=== PATIENT | female | born 1990 | race Caucasian/White ===

== ENCOUNTER 2018-11-13 08:38 | Inpatient (IN) | payer MEDICAID ==
[2018-11-13 09:57] VITALS: BMI 34.8
[2018-11-13] MEDS: Lactated Ringer's 1,000 ML IV ONE ×4 (10:07→17:16)
[2018-11-13] MEDS ORDERED: Oxytocin 30 UNIT in NS 500 ml 30 UNITS/500 ML BAG IV ONE (10:11)
[2018-11-13 10:35] LABS: BASO % 0.2 % (0.0-2.0); EOS # 0.1 K/uL (0.0-0.7); EOS % 0.6 % (0.0-4.0); HEMOGLOBIN 14.2 g/dL (12.0-16.0); LYMPH # 2.1 K/uL (1.0-4.3); LYMPH % 19.4 % (20.0-40.0); MEAN CELL VOLUME 87.6 fl (81.0-99.0); MEAN CORPUSCULAR HEMOGLOBIN 29.4 pg (27.0-31.0); MEAN CORPUSCULAR HGB CONC 33.6 g/dL (33.0-37.0); MEAN PLATELET VOLUME 9.2 fl (7.2-11.7); MONO # 0.6 K/uL (0.0-0.8); MONO % 5.3 % (0.0-10.0); NEUT # 8.1 K/uL (1.8-7.0); NEUT % 74.5 % (50.0-75.0); NRBC % 0.1 % (0.0-0.0); RBC 4.82 Mil/uL (3.80-5.20); WHITE BLOOD COUNT 10.9 K/uL (4.8-10.8)
[2018-11-13] MEDS ORDERED: OXYTOCIN/0.9 % NS 20 UNIT/1,000 ML BAG IV SCH (11:30)
[2018-11-13] MEDS ORDERED: Gentamicin 500 MG in Sodium Chloride 0.9% 250 ML IVPB ONE (12:45)
[2018-11-13] MEDS ORDERED: Bupivacaine 0.25% 300 ML in Sodium Chloride 0.9% 300 ML IS ONE (13:00)
[2018-11-13] MEDS ORDERED: Morphine 1 mg/ml preservative-free Inj(Duramorph) ONE (13:38)
--- NOTE | 2018-11-13 15:44 | OBHP ---
Datetime: 11/13/2018 09:57 IP Adm Impression: Term, intrauterine ; No Active Labor IP Chief Complaint Other: Scheduled IP Admit Plan: Admit to unit; Initiate Section protocol Admit Comment, IP Provider: HPI: Erica is a 28 year old at 39.4 here for a repeat . De nies vaginal bleeding, contractions or LOF. History G1: 2003, ETOP G2: 2017, for failure to progress G3: present complications None PMH Denies PSH x1 Medications PNV Allergies Penicillin - reports rash 10 years ago, can't remember if she has pruritis or urticaria Social History Denies tobacco, alcohol or drug use PHYSICAL EXAM Vitals reviewed labs: O+, Ab neg, Rubella immune, Varicella non immune, RPR/HIV neg, GC/Chlamydia neg, GB S POSITIVE ASSESSMENT/PLAN: 28 year old at 39.4 here for repeat - Pre-op orders - Plan to use clindamycin and gentamicin for pre-op prophylaxis due to unknown penicillin allergy America Littlejohn MD OB Fellow Addendum: Patient was seen and evaluated with the OB fellow and I agree with the above. Abdomen - PN: Normal Lungs - PN: Normal Heart - PN: Normal HEENT - PN: Normal General - PN: Normal IP Fetus A Comments: Reactive NST FHR - Baseline A Provider: 120 Membranes, Provider: Intact Gestation - Est Wks by US: 39.4 EGA AdmitDate IP: 39.4 Vital Signs Provider: Reviewed; Within Normal Limits IP Chief Complaint: Scheduled Section NICHD Variability Prov Fetus A: Moderate 6-25bpm NICHD Accel Fetus A IP Provider: [id number] NICHD Decel Fetus A IP Provider: None
[2018-11-13] MEDS ORDERED: Oxycodone/Acetaminophen 5/325 mg Tab PO PRN ×4 (15:46→20:00)
--- NOTE | 2018-11-13 15:54 | OBDS ---
DELIVERY PERSONNEL Delivery Doctor: Vanessa Nye MD Scrub Nurse: Bindu [employer] Specialist: [place] Jung RN; Maude Abbasi RN Anesthesiologist: Dr. Nation Resident: Dr. Ochoa MATERNAL INFORMATION Delivery Anesthesia: Spinal Medications in Delivery: Pitocin 30 mu/500 mL NS, Pitocin 20 mu/1000 mL NS Placenta Cultured: No Maternal Complications: None Provider Comments: Uncomplicated repeat delivery of a viable male infant with BW of 3600gms and scores of 9 and 9 delivered in cephalic presentation with clear amniotic fluid. The uterus both fallopian tubes and ovaries appeared normal. Uterine closure in 2 layers. On-Q pain reducing system used for pain control. EBL- 500mls Patient tolerated the procedure well. LABOR SUMMARY EDC: 11/16/2018 00:00 No. Babies in Womb: 0 Attempted: No Labor Anesthesia: Intrathecal LABOR INFORMATION Reason for Induction: Not Applicable Onset of Labor: Scheduled Group B Beta Strep: Positive Antibiotics # of Doses: 2 Antibiotics Time of Last Dose: 1421 Steroids Given: None Reason Steroids Not Administered: Not Applicable MEMBRANES Membranes Rupture Method: Artificial Rupture of Membranes: 11/13/2018 14:33 Length of Rupture (hrs): 0.00 Amniotic Fluid Color: Clear Amniotic Fluid Amount: Moderate Amniotic Fluid Odor: None STAGES OF LABOR Stage 3 hrs: 0 Stage 3 min: 1 CSECTION DELIVERY Primary Indication: Repeat Elective CSection Urgency: Elective CSection Incidence: Repeat Labor: No Labor Elective: Elective CSection Incision: Lower Uterine Transverse Uterine Closure: Double-layer closure BABY A INFORMATION Delivery Date/Time: 11/13/2018 14:33 Method of Delivery: Born in Route : No : N/A Forceps: N/A Vacuum Extraction: N/A Shoulder Dystocia : No SHOULDER DYSTOCIA BABY A Delivery Date/Time: 11/13/2018 14:33 PRESENTATION/POSITION BABY A Presentation: Cephalic Cephalic Presentation: Vertex Breech Presentation: N/A PLACENTA INFORMATION BABY A Placenta Delivery Time : 11/13/2018 14:34 Placenta Method of Delivery: Spontaneous Placenta Status: Delivered SCORES BABY A Heart Rate 1 min: >100 bpm Resp Effort 1 min: Good Cry Reflex Irritability 1 min: Cough or Sneeze or Pulls Away Muscle Tone 1 min: Active Motion Color 1 min: Body [place], Extremities Blue Resuscitation Effort 1 min: N/A SCORE 1 MIN: 9 Heart Rate 5 min: >100 bpm Resp Effort 5 min: Good Cry Reflex Irritability 5 min: Cough or Sneeze or Pulls Away Muscle Tone 5 min: Active Motion Color 5 min: Body [place], Extremities Blue Resuscitation Effort 5 min: N/A SCORE 5 MIN: 9 Heart Rate 10 min: >100 bpm Resp Effort 10 min: Good Cry Reflex Irritability 10 min: Cough or Sneeze or Pulls Away Muscle Tone 10 min: Active Motion Color 10 min: Body [place], Extremities Blue Resuscitation Effort 10 min: N/A SCORE 10 MIN: 9 INFANT INFORMATION BABY A Gestational Age at Delivery: 39.4 Gestational Status: Term Outcome : Liveborn Infant Condition : Stable Infant Sex: Male IDENTIFICATION/MEDS BABY A ID Band Number: [id number] ID Band Location: Left Leg; Left Arm WEIGHT/LENGTH BABY A Birthweight (gms): 3600 Infant Weight (lb): 7 Weight (oz): 15 Infant Length Inches: 20.50 Infant Length cms: 52.1 CORD INFORMATION BABY A No. Cord Vessels: 3 Nuchal Cord : N/A Infant Suction: None
[2018-11-13] MEDS ORDERED: Simethicone 80 mg Chewtab PO SCH (16:00)
--- NOTE | 2018-11-13 16:34 | PCM.SURG1 ---
Surgeon's Initial Post Op Note - Surgeon's Notes Surgeon: Dr Nye Payroll Officer: Dr Littlejohn, Dr Aspen Sommer Type of Anesthesia: Spinal Anesthesia Administered By: Dr Nation Pre-Operative Diagnosis: IUP at 36w4d with a Previous Section,. For repeat section Operative Findings: Live Male infant with BW of 3600gms and scores of 9 and 9, delivered in cephalic presentation, clear amniotic fluid , fundal placenta. Uterus, both fallopian tubes and ovaries appeared normal. IVF Intake - 1700mls. EBL- 500mls Post-Operative Diagnosis: Same as Preop diagnosis Operation Performed: Repeat Low transverse section Specimen/Specimens Removed: None Estimated Blood Loss: EBL {In ML}: 500 Blood Products Given: N/A Drains Used: No Drains Post-Op Condition: Good Date of Surgery/Procedure: 11/13/18 Time of Surgery/Procedure: 16:35
[2018-11-13] MEDS ORDERED: DiphenhydrAMINE 50 mg/ml Inj ONE (17:02)
[2018-11-13] MEDS ORDERED: DiphenhydrAMINE 50 mg/ml Inj IVP PRN ×2 (17:03→20:00)
[2018-11-13] MEDS: Simethicone 80 mg Chewtab PO SCH (23:08)
[2018-11-14] MEDS ORDERED: Lactated Ringer's 1,000 ML IV ONE (00:43)
[2018-11-14] MEDS: Simethicone 80 mg Chewtab PO SCH ×4 (04:00→21:24)
[2018-11-14 05:57] LABS: MEAN CORPUSCULAR HEMOGLOBIN 29.3 pg (27.0-31.0); MEAN CORPUSCULAR HGB CONC 33.3 g/dL (33.0-37.0); RBC 3.99 Mil/uL (3.80-5.20); RED CELL DISTRIBUTION WIDTH 13.9 % (11.5-14.5)
[2018-11-14 06:03] LABS: HEMOGLOBIN 11.7 g/dL (12.0-16.0)
--- NOTE | 2018-11-14 08:21 | OP ---
PROCEDURE DATE: 11/13/2018 PREOPERATIVE DIAGNOSIS: Intrauterine at 39 weeks and 4 days with prior section coming for a repeat section. POSTOPERATIVE DIAGNOSIS: Intrauterine at 39 weeks and 4 days with prior section coming for a repeat section. PROCEDURES DONE: Repeat low transverse section performed on 11/13/2018 around 1:30 p.m. SURGEON: Gilberto Nye MD COPPER TAPPER: 1. Dr. Littlejohn 2. . Assistants to this procedure were needed for exposure of the tissues and help in the delivery of the baby. The assistants remained with the surgery throughout its entire length. TYPE OF ANESTHESIA: Spinal. ANESTHESIA ADMINISTERED BY: Kelley Nation MD FINDINGS: A live male with weight of 3600 g. scores of 9 in the first and fifth minutes respectively, delivered in cephalic presentation with clear amniotic fluid. Placenta was fundal. The uterus as well as both fallopian tubes and both ovaries appeared normal. IV fluid intake is around 1700 mL. ESTIMATED BLOOD LOSS: About 500 mL. COMPLICATIONS: There were no complications. DESCRIPTION OF PROCEDURE: After obtaining informed consent, the patient was sent to the OR with IV running and the patient was seated on the OR table after which adequate spinal anesthesia was given. The patient was then placed in the supine position with the left lateral tilt on the OR table after adequate anesthesia. The patient was prepped and draped in the usual sterile fashion. A Pfannenstiel skin incision was made using the scalpel through the old incisional scar and this was continued with the Bovie device through the subcutaneous tissues until the rectus fascia was identified. The incision in the rectus fascia was extended to both sides by means of sharp and blunt dissection using Rojas scissors. The rectus fascia was lifted off the rectus muscles both superiorly and inferiorly by means of sharp dissection with Rojas scissors and blunt dissection. The rectus muscle was in the midline to expose peritoneum, which was carefully entered using Metzenbaum scissors and with good visualization of the bladder. Once the abdominal cavity was entered, the vesicoperitoneum fold of the peritoneum was identified, was incised in a transverse fashion using Metzenbaum scissors and retracted inferiorly to expose the lower uterine segment. A low transverse incision was made using the scalpel. This was sent through the myometrial layer, which was very thin on opening the abdomen. The incision was extended to both sides in a blunt fashion after encountering the amniotic membranes. The baby, which was in cephalic presentation was delivered after rupturing the amniotic membranes with clear fluid. The baby was delivered uneventfully. The mouth and nostrils were bulb suctioned. A three-vessel cord was clamped and cut and the baby was given to the team. The placenta was expressed from the uterine cavity after obtaining routine umbilical cord blood. The uterus was then brought out of the abdominal cavity and the uterine incision was repaired using Vicryl #0, the first layer in a running locked fashion and a second layer in a running fashion and imbricating the first layer. This was conducted until hemostasis was achieved at the incisional point. Irrigation of the posterior and anterior surfaces of the uterus was undertaken. Hemostasis was noted. After ensuring all instruments and laparotomy pads were taken from the abdominal cavity, the uterus was returned into the abdominal cavity and attention was turned to the anterior abdominal wall, which was closed in layers with 2-0 Vicryl for the peritoneum and the rectus muscles. An On-Q pain reducing system was placed. As per block setter gypsum's instruction, the first catheter was placed on the uterus and the second catheter to . The local anesthesia was placed over the rectus muscle. The rectus fascia was re-approximated using Vicryl #0. The subcutaneous tissue was brought together by means of plain catgut. The skin was closed in a subcuticular fashion using #4-0 Vicryl. All counts of instruments, laparotomy pads, and needles used were correct x3, and the patient was sent to the recovery room awake and in stable condition. The patient tolerated the procedure well. Gilberto Nye MD
[2018-11-14] MEDS: Multivitamin With Minerals Tab PO SCH (08:40)
[2018-11-14] MEDS ORDERED: Multivitamin With Minerals Tab PO SCH (09:00)
--- NOTE | 2018-11-14 13:44 | RAD ---
Date of service: 11/14/2018 HISTORY: r/o foreign body COMPARISON: None available. FINDINGS: BOWEL: Moderate stool retention especially right colon. No mechanical obstruction. BONES: Normal. OTHER FINDINGS: Bladder distension. No radiopaque foreign body identified. IMPRESSION: No radiopaque foreign body appreciated. Moderate stool retention
--- NOTE | 2018-11-14 13:57 | RAD ---
Date of service: 11/14/2018 PROCEDURE: Radiographs of the pelvis. HISTORY: r/o foreign body COMPARISON: None. FINDINGS: BONES: Pelvic Bones: Unremarkable. Hips: Grossly unremarkable. JOINTS: Sacroiliac Joints: Unremarkable. Pubic Symphysis: Asymmetrically prominent right-sided sclerotic arthrosis. OTHER FINDINGS: Moderate stool retention. Probable distended bladder. Additional other pelvic mass is not excluded no appreciable central rectosigmoid bowel loop seen. No radiopaque foreign body seen. IMPRESSION: No radiopaque foreign body seen. Moderate stool retention. Vague increased central pelvic opacity in part probably distended bladder. Additional pelvic mass not excluded. Here paucity of rectosigmoid bowel loops noted. Consider pelvic ultrasound initial evaluation for further evaluation. If unrevealing here consider CT of the and pelvis with oral and IV contrast. Comments: Study marked for PA review .
[2018-11-15] MEDS: Simethicone 80 mg Chewtab PO SCH ×4 (05:36→22:19)
--- NOTE | 2018-11-15 08:18 | OBPPN ---
Datetime: 11/15/2018 06:12 PP Pain Prov comment: Using ONQ pain relief PP Impression Prov: Normal progression PP Plan Prov: Continue present management IP PP Procedures: None Datetime: 11/14/2018 12:09 PP Pain Prov: Within normal limits PP Nausea Prov: Denies PP Flatus Prov: Yes PP BM Prov: No PP Breasts Prov: Normal PP Heart Prov: Normal PP Lungs Prov: Normal PP Abdomen/Uterus Prov: Normal PP Lochia Prov: Normal PP Vulva/Perineum Prov: Normal PP CVA Tenderness Prov: Normal PP Extremities Prov: Normal PP C/S Incision Prov: Normal PP Progress Prov: Normal PP Comments Phys Exam Prov: Abdomen soft, nontender, nondistended Incision clean, dry, intact On-Q pump intact Uterus firm, below umbilicus No deep calf tenderness bilaterally PP Progress Note Prov: Postop day #1 status post repeat , patient recovering well Pain control Postop CBC Remove Aguilera, void check Patient out of bed and ambulating Addendum: I discussed with patient and intraoperative event from day before. I discussed with patie nt that suture needle was bent and tip of needle was broken off. I discussed with patient the need f or abdominal and pelvic x-ray to confirm no retained foreign body. All patient questions regarding t his were answered and abdominal pelvic x-ray was ordered. Abdominal pelvic x-ray confirmed no retained foreign body. I discussed these results with patient as well. All patient questions were answered Vital Signs Provider PP: Reviewed; Within Normal Limits
[2018-11-15] MEDS: Multivitamin With Minerals Tab PO SCH (09:24)
--- NOTE | 2018-11-15 12:21 | OBPPN ---
Datetime: 11/15/2018 06:12 PP Progress Note Prov: Pt is 28 yo a POD 2 s/p on 11/13/18 with delivery of male infan t @39.4 wks. Pt needed ibuprofen at 2 am and is in moderate pain now. Still using the ONQ ball for pa in relief. Tolerating oral intake. Lochia like menses. Patient is breast and bottle feeding without d ifficulty. +Flatus, +BM. Denies fevers, chills, dizziness, chest pain, SOB, nausea, vomiting, diarrhe a, constipation or dysuria. VS: wnl Gen: NAD HEENT: NCAT Cardio: + S1S2, RRR Lungs: CTA B/L, no wheezes, rales or rhonchi Abd: soft, incision-c/d/i, appropriate tenderness to palpation, + BS heard throughout, UB firm bel ow level of umbilicus, two catheters inserted in abdomen from ONQ ball, clean dry. Ext: No edema, calves non tender H _ H: aCBC: 14.2/42.2, pCBC: 11.7/35.1 Assessment: Pt is 28 yo a POD 2 s/p on 11/13/18 with delivery of male @39.4 wks. clinical ly stable Plan: - and ambulation encouraged. -Continue with ONQ device for pain relief, has percocet and ibuprofen PRN if needed -Continue with Senokot 17.2mg PO HS and Simethicone 80mg Q 6 -Pt has apt to F/U with Alex Monroe in 1 week for would check and will call for 4-6 weeks for pos t- visit, will call Dr. Bosch for visit in 2-3 days. -Anticipated D/C- 11/16/18 Case reviewed and discussed with attending -Chasity Frances PGY1 Patient was seen with the resident I agree with the note
[2018-11-16] MEDS: Simethicone 80 mg Chewtab PO SCH ×2 (05:42→09:01)
[2018-11-16] MEDS: Multivitamin With Minerals Tab PO SCH (09:01)
[2018-11-16 16:17] VITALS: BP 111/62; PULSE 74; RESP 19; TEMP 98.8; O2SAT 97
== END 2018-11-16 11:50 | disposition home or self-care (01) | DRG 371 ==
LOC: H.EROB2 08:38 → H.L&D 09:16 → H.EROB2 11:22 → H.ERHOLD 11:23 → H.L&D 11:54 → H.OB/GYN 19:54
PROVIDERS: ADMIT Obstetrics & Gynecology; ATTEND Obstetrics & Gynecology
PROC: 10D00Z1 Extraction of Products of Conception, Low, Open Approach (ICD-10-PCS; principal; 2018-11-13)
PROC: 4A1HXCZ Monitoring of Products of Conception, Cardiac Rate, External Approach (ICD-10-PCS; 2018-11-13)
DX: O34.211 Maternal care for low transverse scar from previous cesarean delivery (principal); N85.8 Other specified noninflammatory disorders of uterus; Z3A.39 39 weeks gestation of pregnancy; Z37.0 Single live birth